=== PATIENT | female | born 1990 | race American Indian/Alaskan Native ===

== ENCOUNTER 2017-07-07 10:26 | Emergency (ER) | payer SELFPAY ==
[2017-07-07 11:24] LABS: Basophils % (Auto) 0.5 % (0.0-1.8); Eosinophils # (Auto) 0.1 K/mm3 (0.0-0.4); Eosinophils % (Auto) 0.7 % (0.0-4.3); Hematocrit 41.7 % (30.3-42.9); Lymphocytes # (Auto) 1.5 K/mm3 (1.2-5.4); Lymphocytes % (Auto) 20.9 % (13.4-35.0); Mean Corpuscular HGB Conc 34 % (30-34); Mean Corpuscular Hemoglobin 33 pg (28-32); Mean Corpuscular Volume 98 fl (79-97); Monocytes # (Auto) 0.8 K/mm3 (0.0-0.8); Monocytes % (Auto) 11.4 % (0.0-7.3); Red Blood Count 4.26 M/mm3 (3.65-5.03)
[2017-07-07 11:30] LABS: Platelet Count 290 K/mm3 (140-440)
[2017-07-07 11:45] LABS: Alanine Aminotransferase 31 units/L (7-56); Albumin 4.2 g/dL (3.9-5); BUN/Creatinine Ratio 10; Blood Urea Nitrogen 7 mg/dL (7-17); Calcium 9.9 mg/dL (8.4-10.2); Hemolysis Index 13
[2017-07-07 12:14] LABS: Bilirubin,Urine NEG (Negative); Blood,Urine NEG (Negative); Color,Urine Amber (Yellow); Mucus,Urine 3+ /HPF; Nitrite,Urine NEG (Negative)
--- NOTE | 2017-07-07 14:16 | Ultrasound Report ---
ULTRASOUND PELVIC COMPLETE ULTRASOUND TRANSVAGINAL HISTORY: Abdominal pain during . COMPARISON: None. TECHNIQUE: Transabdominal and transvaginal ultrasound with color doppler interrogation. FINDINGS: Uterus: The uterus measures 8 x 6 x 7 cm. No uterine mass. The cervix is unremarkable. Endometrium: An intrauterine gestational sac containing a pole and yolk sac is identified. Heart rate measures 127 beats per minute. No acute abnormality is detected. [place]-rump length correlates with a 6 week, 1 day . Estimated due date is 03/09/18. Right ovary: 3.6 x 2.3 x 4.2 cm. 2.2 corpus luteum cyst is noted. Left ovary: 2.8 x 1.8 x 2.1 cm. No pelvic fluid or mass is identified. Normal color doppler interrogation. IMPRESSION: Viable, single intrauterine dated at 6 weeks, 1 day. No acute abnormality is appreciated.
[2017-07-07 19:54] VITALS: BP 99/66
--- NOTE | 2017-07-07 21:04 | Emergency Department Report ---
ED Female HPI - General Chief complaint: Nausea/Vomiting/Diarrhea Stated complaint: VOMITING Time Seen by Provider: 07/07/17 20:55 Source: patient Mode of arrival: Ambulatory Limitations: No Limitations - History of Present Illness Initial comments: Patient is 26 years old female 4 para 1, and 2 miscarriages. Patient presented to the ER with lower abdominal pain nausea and vomiting for the last 2 weeks. Patient denied any vaginal bleeding or vaginal discharge. Patient denied any fever or other complaints. MD Complaint: pelvic pain Radiation: suprapubic Quality: cramping Are you Now?: Yes Associated Symptoms: denies other symptoms, abdominal pain, nausea/vomiting - Related Data Sexually active: Yes : 4 Para: 1 A: 2 Allergies Allergy/AdvReac Type Severity Reaction Status Date / Time No Known Allergies Allergy Unverified 07/07/17 10:50 ED Review of Systems ROS: Stated complaint: VOMITING Other details as noted in HPI Comment: All other systems reviewed and negative Constitutional: denies: chills, fever Respiratory: denies: cough, orthopnea, shortness of breath, SOB with exertion, SOB at rest Cardiovascular: denies: chest pain, palpitations, dyspnea on exertion, orthopnea , edema, syncope, paroxysmal nocturnal dyspnea Gastrointestinal: abdominal pain, nausea, vomiting. denies: diarrhea, constipation, hematemesis, melena, hematochezia Genitourinary: denies: urgency, frequency, hematuria, abnormal menses Musculoskeletal: denies: back pain Neurological: denies: headache, weakness, numbness, paresthesias, confusion ED Past Medical Hx - Past Medical History Previous Medical History?: No - Surgical History Past Surgical History?: No - Social History Smoking Status: Current Every Day Smoker Substance Use Type: None ED Physical Exam - General Limitations: No Limitations General appearance: alert, in no apparent distress - Head Head exam: Present: atraumatic, normocephalic, normal inspection - Eye Eye exam: Present: normal appearance, PERRL, EOMI Pupils: Present: normal accommodation - ENT ENT exam: Present: normal exam, normal orophraynx, mucous membranes moist - Neck Neck exam: Present: normal inspection, full ROM. Absent: tenderness, meningismus, lymphadenopathy, thyromegaly - Respiratory Respiratory exam: Present: normal lung sounds bilaterally. Absent: respiratory distress, wheezes, rales, rhonchi, stridor, accessory muscle use, decreased breath sounds, prolonged expiratory - Cardiovascular Cardiovascular Exam: Present: regular rate, normal rhythm, normal heart sounds - GI/Abdominal GI/Abdominal exam: Present: soft, normal bowel sounds. Absent: distended, tenderness, guarding, rebound, rigid, organomegaly, mass, bruit, pulsatile mass , hernia - Extremities Exam Extremities exam: Present: normal inspection, full ROM, normal capillary refill - Back Exam Back exam: Present: normal inspection, full ROM. Absent: tenderness, CVA tenderness (R), CVA tenderness (L), muscle spasm, paraspinal tenderness - Neurological Exam Neurological exam: Present: alert, oriented X3, CN II-XII intact, normal gait - Skin Skin exam: Present: warm, intact, normal color. Absent: cyanosis, diaphoretic ED Course Vital Signs 07/07/17 07/07/17 07/07/17 10:44 19:51 20:44 Temperature 98.9 F 98.8 F Pulse Rate 88 87 Respiratory 20 16 14 Rate Blood Pressure 104/65 99/66 O2 Sat by Pulse 98 99 Oximetry ED Medical Decision Making - Lab Data Result diagrams: 07/07/17 10:59 07/07/17 10:59 - Radiology Data Radiology results: report reviewed Referring Physician: GEOVANNA VALDEZ Patient Name: MARYANN BOLIVAR Date of : 1990 Sex: Female Report Date: 2017-07-07 Report Status: Finalized Findings [facility] [address] [place] [address] Ultrasound Report Signed Patient: MARYANN BOLIVAR MR#: [id number] : 1990 Acct:[id number] Age/Sex: 26 / F ADM Date: 07/07/17 Loc: ED Attending Dr: Ordering Physician: GEOVANNA VALDEZ NP Date of Service: 07/07/17 Procedure(s): US OB transvaginal Accession Number(s): [id number] cc: GEOVANNA VALDEZ NP ULTRASOUND PELVIC COMPLETE ULTRASOUND TRANSVAGINAL HISTORY: Abdominal pain during . COMPARISON: None. TECHNIQUE: Transabdominal and transvaginal ultrasound with color doppler interrogation. FINDINGS: Uterus: The uterus measures 8 x 6 x 7 cm. No uterine mass. The cervix is unremarkable. Endometrium: An intrauterine gestational sac containing a pole and yolk sac is identified. Heart rate measures 127 beats per minute. No acute abnormality is detected. [place]-rump length correlates with a 6 week, 1 day . Estimated due date is 03/09/18. Right ovary: 3.6 x 2.3 x 4.2 cm. 2.2 corpus luteum cyst is noted. Left ovary: 2.8 x 1.8 x 2.1 cm. No pelvic fluid or mass is identified. Normal color doppler interrogation. IMPRESSION: Viable, single intrauterine dated at 6 weeks, 1 day. No acute abnormality is appreciated. Transcribed By: TTR Dictated By: LEANN HENDERSON JR, MD Electronically Authenticated By: LEANN HENDERSON JR, MD Signed Date/Time: 07/07/17 135 DD/ 1357 TD/TT: 07/07/17 1359 Critical care attestation.: If time is entered above; I have spent that time in minutes in the direct care of this critically ill patient, excluding procedure time. ED Disposition Clinical Impression: Abdominal pain affecting , UTI in Disposition: DC-01 TO HOME OR SELFCARE Is pt being admited?: No Condition: Stable Instructions: Abdominal Pain in (ED), Acute Nausea and Vomiting (ED) , Urinary Tract Infection in Women (ED) Referrals: LUKAS HENDERSON MD [Staff Physician] - 3-5 Days
== END 2017-07-07 21:21 | disposition home or self-care (01) ==
LOC: ED 10:26
DX: O23.41 Unspecified infection of urinary tract in pregnancy, first trimester (principal); O99.331 Smoking (tobacco) complicating pregnancy, first trimester; F17.200 Nicotine dependence, unspecified, uncomplicated; Z3A.01 Less than 8 weeks gestation of pregnancy
CPT/HCPCS: 36415; 76801; 76817; 80053; 81001; 84702; 84703; 85025; 86900; 86901; 87400; 99284